=== PATIENT | male | born 1995 ===

== ENCOUNTER 2016-11-03 19:47 | Emergency (ER) | payer OTHER ==
[2016-11-03 19:55] VITALS: BMI 37.1
--- NOTE | 2016-11-03 20:41 | ED PDOC ---
Syncope/Near Syncope/Dizzyness Time Seen by Provider: 11/03/16 20:37 Chief Complaint (Nursing): Syncope Chief Complaint (Provider): syncope History Per: Patient History/Exam Limitations: no limitations Current Symptoms Are (Timing): Gone Now Number Of Syncopal Episodes: 1 Activity At Onset Of Symptoms: Other (drinking alcohol and not dirnking enough water standing in the heat outside. ) Associated Symptoms Preceding Syncopal Episode: Lightheadedness Seizure Or Post-ictal Symptoms: None Possible Causative Factor(s): Recent Alcohol, Decreased PO Intake Fall Associated With With Symptoms: No Severity: Mild Additional Complaint(s): 21yo M without peritent medical hx in ED after witnessed syncopal episode x 1 earlier today-pt believes it was due to lack of water intake and too much alcohol intake and being in the heat outside. pt denies head injury, seizure, CP , palpitations, abd pain vomiting or nausea. no hx of syncope. Past Medical History Reviewed: Historical Data, Nursing Documentation, Vital Signs Vital Signs: Last Vital Signs Temp Pulse 118 H 11/03/16 19:49 Resp 18 11/03/16 19:49 BP 137/71 11/03/16 19:49 Pulse Ox 96 11/03/16 19:49 - Medical History PMH: No Chronic Diseases - Family History Family History: States: No Known Family Hx - Allergies Allergies/Adverse Reactions: Allergies Allergy/AdvReac Type Severity Reaction Status Date / Time No Known Allergies Allergy Verified 11/03/16 19:54 Review of Systems ROS Statement: Except As Marked, All Systems Reviewed And Found Negative Eyes: Negative for: Vision Change Neurological: Negative for: Weakness, Numbness, Incoordination, Change in Speech , Confusion, Seizures, Altered Mental Status, Headache, Dizziness Physical Exam - Reviewed Nursing Documentation Reviewed: Yes Vital Signs Reviewed: Yes - Physical Exam Appears: Positive for: Well, Non-toxic, No Acute Distress Head Exam: Positive for: ATRAUMATIC, NORMAL INSPECTION, NORMOCEPHALIC Skin: Positive for: Normal Color, Warm. Negative for: Diaphoresis, Pallor Cardiovascular/Chest: Positive for: Regular Rate, Rhythm Respiratory: Positive for: CNT, Normal Breath Sounds Gastrointestinal/Abdominal: Positive for: Normal Exam, Bowel Sounds, Soft Back: Positive for: Normal Inspection Extremity: Positive for: Normal ROM Neurologic/Psych: Positive for: Alert, engineering and scientific programmer II-XII (intact), Oriented - ECG ECG Rhythm: Positive for: Normal QRS, Normal ST Segment, Sinus Rhythm O2 Sat by Pulse Oximetry: 96 Medical Decision Making Medical Decision Making: Pt at this time is well appearing. however HR is still elevated over 100. Pt was convinced to augustin EKG, however unwilling at this time to do further testing ie Ct of head, blood work and IV fluids. Pt assures that he will f.u with pmd next week sunday. Disposition - Clinical Impression Clinical Impression: Syncope - Patient ED Disposition Is Patient to be Admitted: No Counseled Patient/Family Regarding: Diagnosis, Need For Followup - Disposition Referrals: [facility] [Outside] Disposition: Routine/Home Disposition Time: 21:15 Condition: STABLE Instructions: Syncope (DC)
[2016-11-03 20:46] VITALS: BP 128/62; PULSE 117; RESP 16; TEMP 97.8
[2016-11-03 20:52] VITALS: O2SAT 96
--- NOTE | 2016-11-04 11:21 | CARD ---
APPROVED REPORT EKG Measurement Heart [id number] <Conclusion> Normal sinus rhythm Normal Tracing.
== END 2016-11-03 21:30 | disposition home or self-care (01) ==
LOC: H.ER 19:47
DX: R55 Syncope and collapse (principal)